=== PATIENT | male | born 1945 | race Caucasian/White ===

== ENCOUNTER 2018-03-03 08:07 | Inpatient (IN) | payer OTHER, MEDICAID ==
--- NOTE | 2018-03-03 09:01 | EDPHY ---
H & P Stated Complaint: Swelling in legs and hands Time Seen by Provider: 03/03/18 08:34 HPI/ROS: CHIEF COMPLAINT: Shortness of breath, maldonado skin HISTORY OF PRESENT ILLNESS: 72-year-old male presents with a 1 month history of shortness of breath. Onset of exertional shortness of breath 1 month ago, associated with a productive cough. He now feels short of breath with minimal exertion. When he climbs a flight of stairs, he needs to stop several times because of shortness of breath. He has also noticed that his skin has been maldonado at altitude over the last month. He lives at 9000 [place] elevation. He feels much better at this elevation. No chest pain or tightness. No prior history of cardiopulmonary disease. REVIEW OF SYSTEMS: complete 10 point ROS reviewed and is negative except for the noted elements in the HPI Source: Patient Exam Limitations: No limitations - Personal History Current Tetanus/Diphtheria Vaccine: Yes Tetanus Vaccine Date: 2012 - Medical/Surgical History Hx Asthma: No Hx Chronic Respiratory Disease: No Hx Diabetes: No Hx Cardiac Disease: Yes Hx Renal Disease: No Hx Cirrhosis: No Hx Alcoholism: Yes Hx HIV/AIDS: No Hx Splenectomy or Spleen Trauma: No Other PMH: pmh- GERD, depression, HTN, polio, ETOH, arthritis. psh- Tonsillectomy, Inguinal hernia rep - Social History Smoking Status: Current every day smoker Alcohol Use: Heavy Drug Use: None - Physical Exam Exam: General Appearance: Alert, pleasant Eyes: Pupils equal and round, no conjunctival pallor or injection ENT, Mouth: Mucous membranes moist Neck: Normal inspection Respiratory: Lungs are clear to auscultation, no wheezing, rhonchi or rales Cardiovascular: Regular rate and rhythm, no murmur Gastrointestinal: Abdomen is soft and nontender Neurological: A&O, nonfocal, normal gait Skin: Warm and dry Extremities: Slight swelling bilaterally, right lower extremity is smaller than left Psychiatric: Mood and affect normal Constitutional: Initial Vital Signs Temperature (C) 36.5 C 03/03/18 08:11 Heart Rate 90 03/03/18 08:11 Respiratory Rate 18 03/03/18 08:11 Blood Pressure 183/139 H 03/03/18 08:11 O2 Sat (%) 98 03/03/18 08:11 O2 Delivery Mode Room Air Allergies/Adverse Reactions: Penicillins Allergy (Verified 03/03/18 10:31) Tongue Swelling Home Medications: Medication Instructions Recorded NK [No Known Home Meds] 03/03/18 Medical Decision Making - Diagnostics EKG Interpretation: EKG interpreted by me reveals sinus rhythm, rate 95, PACs, prolonged QT interval. Interpretation: Abnormal EKG Imaging Results: Imaging Impressions Chest X-Ray 03/03/18 08:35 Impression: 1. No definite pneumonia. 2. Atherosclerotic aorta. 3. Moderate midthoracic compression fracture likely benign. Consider DEXA bone scan evaluation when the patient's medical condition permits. Imaging: I viewed and interpreted images myself ED Course/Re-evaluation: This patient presents with exertional shortness of breath. Stat EKG reveals no evidence of ischemia or dysrhythmia. Chest x-ray is unremarkable. Laboratory tests reveal elevated BNP, consistent with pulmonary edema. Lasix 20 mg IV given. Echocardiogram ordered. D-dimer is slightly over the upper limit of normal, doubt this is of clinical concern. Patient has no risk factors for pulmonary embolism and I do not feel that further testing is indicated. Given significant symptomatology at altitude, this patient will need to be admitted for further evaluation and treatment of pulmonary edema. The hospitalist service was consulted for admission. Differential Diagnosis: Differential diagnosis includes though it is not limited to pneumonia, pneumothorax, pulmonary embolism, aortic dissection, pericarditis, acute coronary syndrome. - Data Points Laboratory Results: Laboratory Results 03/03/18 08:50 03/03/18 08:50 03/03/18 03/03/18 03/03/18 08:51 08:50 08:50 WBC RBC Hgb Hct MCV MCH MCHC RDW Plt Count MPV Neut % (Auto) Lymph % (Auto) Rush % (Auto) Eos % (Auto) Baso % (Auto) Nucleat RBC Rel Count Absolute Neuts (auto) Absolute Lymphs (auto) Absolute Monos (auto) Absolute Eos (auto) Absolute Basos (auto) Absolute Nucleated RBC Immature Gran % Immature Gran # D-Dimer 0.51 ug/mLFEU H ug/mLFEU (0.00-0.50) Carboxyhemoglobin 2.5 % H % (0-1.5) Sodium Potassium Chloride Carbon Dioxide Anion Gap BUN Creatinine Estimated GFR Glucose Calcium POC Troponin I 0.02 ng/mL ng/mL (0.00-0.08) NT-Pro-B Natriuret Pep 03/03/18 03/03/18 08:50 08:50 WBC 8.43 10^3/uL 10^3/uL (3.80-9.50) RBC 4.59 10^6/uL 10^6/uL (4.40-6.38) Hgb 14.4 g/dL g/dL (13.7-17.5) Hct 41.4 % % (40.0-51.0) MCV 90.2 fL fL (81.5-99.8) MCH 31.4 pg pg (27.9-34.1) MCHC 34.8 g/dL g/dL (32.4-36.7) RDW 12.7 % % (11.5-15.2) Plt Count 252 10^3/uL 10^3/uL (150-400) MPV 8.4 fL L fL (8.7-11.7) Neut % (Auto) 72.9 % % (39.3-74.2) Lymph % (Auto) 14.5 % L % (15.0-45.0) Rush % (Auto) 8.2 % % (4.5-13.0) Eos % (Auto) 3.2 % % (0.6-7.6) Baso % (Auto) 0.8 % % (0.3-1.7) Nucleat RBC Rel Count 0.0 % % (0.0-0.2) Absolute Neuts (auto) 6.15 10^3/uL 10^3/uL (1.70-6.50) Absolute Lymphs (auto) 1.22 10^3/uL 10^3/uL (1.00-3.00) Absolute Monos (auto) 0.69 10^3/uL 10^3/uL (0.30-0.80) Absolute Eos (auto) 0.27 10^3/uL 10^3/uL (0.03-0.40) Absolute Basos (auto) 0.07 10^3/uL 10^3/uL (0.02-0.10) Absolute Nucleated RBC 0.00 10^3/uL 10^3/uL (0-0.01) Immature Gran % 0.4 % % (0.0-1.1) Immature Gran # 0.03 10^3/uL 10^3/uL (0.00-0.10) D-Dimer Carboxyhemoglobin Sodium 137 mEq/L mEq/L (135-145) Potassium 4.3 mEq/L mEq/L (3.3-5.0) Chloride 104 mEq/L mEq/L (97-110) Carbon Dioxide 23 mEq/l mEq/l (22-31) Anion Gap 10 mEq/L mEq/L (6-14) BUN 19 mg/dL mg/dL (7-23) Creatinine 1.1 mg/dL mg/dL (0.7-1.3) Estimated GFR > 60 Glucose 126 mg/dL H mg/dL (70-100) Calcium 9.1 mg/dL mg/dL (8.5-10.4) POC Troponin I NT-Pro-B Natriuret Pep 7400 pg/mL H pg/mL (0-125) Medications Given: Discontinued Medications Aspirin (Aspirin) 324 mg PO EDNOW ONE Stop: 03/03/18 09:44 Last Admin: 03/03/18 09:46 Dose: 324 mg Furosemide (Lasix Injection) 20 mg IVP EDNOW ONE Stop: 03/03/18 09:44 Last Admin: 03/03/18 09:47 Dose: 20 mg Point of Care Test Results: Chemistry 03/03/18 08:51 POC Troponin I 0.02 ng/mL ng/mL (0.00-0.08) Departure - Departure Disposition: [facility] Inpatient Acute Clinical Impression: Pulmonary edema Qualifiers: Chronicity: acute Qualified Code(s): J81.0 - Acute pulmonary edema Condition: Fair
[2018-03-03 09:16] LABS: PLATELET COUNT 252 10^3/uL (150-400)
[2018-03-03] MEDS ORDERED: ASPIRIN 81 MG CHEWABLE TAB PO ONE (09:43)
[2018-03-03] MEDS ORDERED: FUROSEMIDE 20 MG/2 ML VIAL IVP ONE (09:43)
--- NOTE | 2018-03-03 12:24 | ECHO ---
[email or web address] [address] [address] Main: [phone] Fax: [email or web address] Echocardiogram Name: GALILEO HOWE MR#: [id number] Study Date: 03/03/2018 Study Time: 10:00 AM Date of : 1945 Age: 72 year(s) Height: 172.7 cm (68 in.) Weight: 67.59 kg (149 lb.) BSA: 1.8 m2 Gender: Male Examination: Echo Indication: Shortness of breath Image Quality: Adequate Contrast: Requested by: Lois Cabrera BP: 190 mmHg/141 mmHg Heart Rate: Rhythm: Indication: Shortness of breath Procedure Staff [employer] Moss Gatherer: Rylee Turner [facility] Reading Physician: Edwin Dougherty MD Requesting Provider: Conclusions: Dilated left ventricle. Borderline concentric LV hypertrophy. Moderately reduced systolic LV function. EF is 41 %. Global hypokinesis. Moderate mitral valve regurgitation is present. Trivial aortic valve regurgitation. Mild tricuspid regurgitation is present. Right ventricular systolic pressure measures 57mmHg. No pericardial effusion. No prior study for comparison. Measurements: Chambers Valvular Assessment AV/MV Valvular Assessment TV/PV Normal Normal Normal Name Value Range Name Value Range Name Value Range Ao Valeria (2D): 3.5 cm (1.4 cm-2.6 AV Vmax: 1.18 m/s (1 m/s-1.7 TR Vmax: 3.60 mm/s ( - ) cm) m/s) TR PGmax: 52 mmHg ( - ) IVSd (2D): 1.1 cm (0.6 cm-1.1 AV maxP mmHg ( - ) syst. PAP: 57 mmHg ( - ) cm) AV meanP mmHg ( - ) PV Vmax: 0.58 m/s (0.6 m/s-0.9 LVDd (2D): 5.3 cm (4.2 cm-5.9 LVOT Vmax: 0.81 m/s (0.7 m/s-1.1 m/s) cm) m/s) PV PGmax: 1 mmHg ( - ) LVDs (2D): 4.4 cm (2.1 cm-4 JESS (Vmax): 2.2 cm2 ( - ) cm) JESS (VTI): 1.7 cm ( - ) LVPWd (2D): 1.1 cm (0.6 cm-1 MV E Vmax: 0.71 m/s ( - ) cm) MV A Vmax: 0.74 m/s ( - ) LVOTd 2.0 cm 2.0 cm mm MV E/A: 0.96 ( - ) LVEF (MOD4): 41 % (>=55 %) MV PHT: 0.052 s ( - ) RVDd(2D): 2.9 cm (1.9 cm-3.8 cmmm) MVA (PHT): 4.2 s ( - ) Patient: GALILEO HOWE Study Date: 03/03/2018 Page 1 of 2 10:00 AM Continued Measurements: Chambers Valvular Assessment AV/MV Valvular Assessment TV/PV Name Value Name Value Name Value LADs: 4.2 cm MV DecTime: 176 m/s CVP (est.): 5 mmHg LADs Lon.1 cm MV E/E' Lateral: 6.10 LA Area: 19.1 cm2 MR ERO: 0.210 cm2 LA Volume: 56 ml MR PISA radius: 7 mm LA Volume Index: 31.1 ml/m2 MR Reg. Volume: 38 ml RA Area: 14.4 cm2 Additional Vessels Name Value Ao Ascendin.6 cm Inferior Vena Cava: 2.1 cm Findings: Left Ventricle: Dilated left ventricle. Borderline concentric LV hypertrophy. Moderately reduced systolic LV function. EF is 41 %. Unable to assess diastolic dysfunction. Global hypokinesis. Right Ventricle: Normal size right ventricle. Normal RV function. Left Atrium: The left atrium is normal in size. Right Atrium: The right atrium is normal in size. Mitral Valve: The mitral valve is normal in appearance and function. Moderate mitral valve regurgitation is present. No mitral stenosis is present. Aortic Valve: The aortic valve is tri-leaflet. Trivial aortic valve regurgitation. No aortic valve stenosis is present. Tricuspid Valve: The tricuspid valve is normal in appearance and function. Mild tricuspid regurgitation is present. The pulmonary artery pressure is moderately increased. Right ventricular systolic pressure measures 57mmHg. Pulmonic Valve: Pulmonary valve not well visualized. Aorta: The aorta is normal. Normal size aortic root measuring 3.5 cm. Normal size ascending aorta measuring 3.6 cm. IVC: The IVC is normal sized. Pericardium: No pericardial effusion. No pleural effusion. (No Signature Object) Patient: GALILEO HOWE Study Date: 03/03/2018 Page 2 of 2 10:00 AM [id number]
--- NOTE | 2018-03-03 15:08 | CPEKG ---
Test Reason : OPEN Blood Pressure : / mmHG Vent. Rate : 095 BPM Atrial Rate : 089 BPM P-R Int : 118 ms QRS Dur : 094 ms QT Int : 426 ms P-R-T Axes : 045 027 069 degrees QTc Int : 536 ms Sinus rhythm Atrial premature complexes Prolonged QT interval Confirmed by Lois Cabrera ([id number]) on 03/03/2018 3:07:31 PM Referred By: Confirmed By:Lois Cabrera
[2018-03-03] MEDS ORDERED: ONDANSETRON 4 MG/2 ML VIAL IVP PRN (15:28)
[2018-03-03] MEDS ORDERED: ACETAMINOPHEN 325 MG TAB PO PRN (15:28)
[2018-03-03] MEDS ORDERED: ONDANSETRON DISINTEGRATING 4 MG TAB PO PRN (15:28)
--- NOTE | 2018-03-03 15:35 | PDGENHP ---
History and Physical - Chief Complaint SOB - History of Present Illness 72-year-old male presents with a 1 month history of shortness of breath, worse with exertion. Onset of exertional shortness of breath 1 month ago. He now feels short of breath with minimal exertion. When he climbs a flight of stairs, he needs to stop several times because of shortness of breath. He does have an occasional cough. He denies sputum. He is a daily tobacco smoker. He also occasionally uses Meth. He denies CP, palpitations. He does report bilateral leg swelling. CXR did not show edema. He did receive Lasix in the ER and reports he has urinated a significant amount and now feels better. He in RA. TTE shows a LVEF of 41%, Global Hypokinesis, and Mod MVR. RVSP is noted to be 57mmHg pmh- GERD, depression, HTN, polio, ETOH, arthritis. psh- Tonsillectomy, Inguinal hernia rep SocHx: tobacco use, Meth Use FmHx: non contributory History Information - Allergies/Home Medication List Allergies/Adverse Reactions: Penicillins Allergy (Verified 03/03/18 10:31) Tongue Swelling Home Medications: NK [No Known Home Meds] 03/03/18 [Last Taken Unknown] I have personally reviewed and updated: medical history, social history - Social History Smoking Status: Current every day smoker Alcohol Use: Heavy Drug Use: None Review of Systems Review of Systems: ROS: 10pt was reviewed & negative except for what was stated in HPI & below Physical Exam Physical Exam: Temp Pulse Resp BP Pulse Ox 36.3 C 99 14 170/117 H 99 03/03/18 13:22 03/03/18 13:22 03/03/18 13:22 03/03/18 13:22 03/03/18 13:22 Constitutional: no apparent distress Eyes: PERRL Ears, Nose, Mouth, Throat: moist mucous membranes, hearing normal Cardiovascular: regular rate and rhythym, No edema (no edema noted) Respiratory: no respiratory distress, no rales or rhonchi, clear to auscultation Gastrointestinal: normoactive bowel sounds, soft, non-tender abdomen Skin: warm Neurologic: AAOx3 Psychiatric: interacting appropriately, not anxious, not encephalopathic Lab Data & Imaging Review 03/03/18 08:50 03/03/18 08:50 WBC 8.43 10^3/uL (3.80-9.50) 03/03/18 08:50 RBC 4.59 10^6/uL (4.40-6.38) 03/03/18 08:50 Hgb 14.4 g/dL (13.7-17.5) 03/03/18 08:50 Hct 41.4 % (40.0-51.0) 03/03/18 08:50 MCV 90.2 fL (81.5-99.8) 03/03/18 08:50 MCH 31.4 pg (27.9-34.1) 03/03/18 08:50 MCHC 34.8 g/dL (32.4-36.7) 03/03/18 08:50 RDW 12.7 % (11.5-15.2) 03/03/18 08:50 Plt Count 252 10^3/uL (150-400) 03/03/18 08:50 MPV 8.4 fL (8.7-11.7) L 03/03/18 08:50 Neut % (Auto) 72.9 % (39.3-74.2) 03/03/18 08:50 Lymph % (Auto) 14.5 % (15.0-45.0) L 03/03/18 08:50 [place] % (Auto) 8.2 % (4.5-13.0) 03/03/18 08:50 Eos % (Auto) 3.2 % (0.6-7.6) 03/03/18 08:50 Baso % (Auto) 0.8 % (0.3-1.7) 03/03/18 08:50 Nucleat RBC Rel Count 0.0 % (0.0-0.2) 03/03/18 08:50 Absolute Neuts (auto) 6.15 10^3/uL (1.70-6.50) 03/03/18 08:50 Absolute Lymphs (auto) 1.22 10^3/uL (1.00-3.00) 03/03/18 08:50 Absolute Monos (auto) 0.69 10^3/uL (0.30-0.80) 03/03/18 08:50 Absolute Eos (auto) 0.27 10^3/uL (0.03-0.40) 03/03/18 08:50 Absolute Basos (auto) 0.07 10^3/uL (0.02-0.10) 03/03/18 08:50 Absolute Nucleated RBC 0.00 10^3/uL (0-0.01) 03/03/18 08:50 Immature Gran % 0.4 % (0.0-1.1) 03/03/18 08:50 Immature Gran # 0.03 10^3/uL (0.00-0.10) 03/03/18 08:50 D-Dimer 0.51 ug/mLFEU (0.00-0.50) H 03/03/18 08:50 Carboxyhemoglobin 2.5 % (0-1.5) H 03/03/18 08:50 Sodium 137 mEq/L (135-145) 03/03/18 08:50 Potassium 4.3 mEq/L (3.3-5.0) 03/03/18 08:50 Chloride 104 mEq/L (97-110) 03/03/18 08:50 Carbon Dioxide 23 mEq/l (22-31) 03/03/18 08:50 Anion Gap 10 mEq/L (6-14) 03/03/18 08:50 BUN 19 mg/dL (7-23) 03/03/18 08:50 Creatinine 1.1 mg/dL (0.7-1.3) 03/03/18 08:50 Estimated GFR > 60 03/03/18 08:50 Glucose 126 mg/dL (70-100) H 03/03/18 08:50 Calcium 9.1 mg/dL (8.5-10.4) 03/03/18 08:50 POC Troponin I 0.02 ng/mL (0.00-0.08) 03/03/18 08:51 NT-Pro-B Natriuret Pep 7400 pg/mL (0-125) H 03/03/18 08:50 Assessment & Plan Assessment: #Dyspnea on Exertion #Pedal Edema #CHF -LVEF 41, global Hypokinesis #Pulm HTN #Tobacco Abuse disorder #Meth use -Prolonged QT syndrome Plan: the pt looks very stable currently. While he reported pedal edema in the ER and SOB, he is much better since receiving the Lasix in the ER. He reports at least 1 liter voided. His Echocardiogram is concerning. EKG is unremarkable for acute ischemia. The pt will be monitored overnight. Likely needs ongoing diuretics, can reevaluate tomorrow. Although no chest pain, given the global hypokinesis and the improvement of the dyspnea at lower altitude, will do serial trops and obtain a stress test in a.m. Cards to evaluate.
[2018-03-03] MEDS ORDERED: CARVEDILOL 6.25 MG TAB PO ONE (16:09)
[2018-03-03] MEDS: NICOTINE 21 MG/24 HR PATCH TD SCH (16:50)
--- NOTE | 2018-03-03 17:26 | GCON ---
CARDIOLOGY CONSULTATION REASON FOR CONSULTATION: We were asked by Dr. Shahid to evaluate the patient for his systolic CHF. HISTORY OF PRESENT ILLNESS: The patient is a 72-year-old male who presented to the emergency department for worsening dyspnea over the past several months with associated lower extremity edema and "getting maldonado at higher altitudes." He denies any associated chest pains, presyncope, syncope, or palpitations. He does note some PND where he will gasp awake. He reports he has been previously diagnosed with COPD, but has not been compliant with inhalers. 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 He admits to daily tobacco abuse with less than 1 pack per day. He has stopped heavy drinking and at most will have 2-3 drinks per month. He is a current methamphetamine user and he reports he smokes methamphetamines in order to be able to stay awake to perform his work. PAST MEDICAL HISTORY: 1. Polio. 2. Untreated hypertension. 3. Depression. 4. GERD. 5. Current tobacco use. 6. Current methamphetamine use. 7. COPD. PAST SURGICAL HISTORY: Tonsillectomy and inguinal hernia repair. FAMILY HISTORY: Father had an PR at age 45 and at age 82. He has several brothers and sisters, and they have no cardiac issues. 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 He is a current smoker. He denies any significant alcohol intake. He is currently using methamphetamines. REVIEW OF SYSTEMS: As per HPI, other also pertinent negatives include no recent fever, chills, cough, hemoptysis, diarrhea, dysuria. He is noting peripheral edema mostly affecting his right leg that is affected by polio. A 10-point review of systems was obtained and is negative except for as dictated in HPI. PHYSICAL EXAMINATION: VITAL SIGNS: BP of 149/114, heart rate of 92, respirations 19, O2 saturation 97% on room air, temp of 97.4 degrees Fahrenheit. GENERAL: He is an elderly male in no apparent distress. HEENT: Head is normocephalic, atraumatic. Eyes are without scleral icterus. He has moist mucous membranes. NECK: He has JVD present to the mid neck. HEART: Regular rate and rhythm with a 2/6 systolic ejection murmur. LUNGS: Diminished with rhonchi auscultated. ABDOMEN: Soft. Aorta is nonpulsatile. Bowel sounds are present. : No Stewart present. SKIN: Warm and dry. EXTREMITIES: Right leg is visibly much smaller than the left. There is no evident edema. Pulses are diminished to trace bilaterally at the PT pulses. PSYCH: Normal mood and affect. LABORATORY DATA: BMP with sodium 137, potassium 4.3, chloride 104, CO2 23, BUN 19, creatinine 1.1, glucose of 126. NT-proBNP of 7400. Initial point of care troponin is 0.02, which is negative. Next troponin is currently pending. CBC with WBC 8.43, hemoglobin 14.4, hematocrit 41.4, platelet count 252. D- dimer is minimally elevated at 0.51. Carboxyhemoglobin is 2.5. DATABASE: Telemetry reviewed shows sinus rhythm with PJCs or PVCs. A 12-lead ECG, personally interpreted, reveals sinus rhythm with PJCs and LVH by voltage with diffuse ST-T wave abnormalities. Echo shows an EF of 40%, borderline concentric LVH, moderate MR, mild TR, and RVSP of 57. Chest x-ray, personally reviewed, shows atherosclerosis in the aorta with no definite fluid overload. IMPRESSION AND PLAN: The patient is a 72-year-old male who presents with acute- on-chronic shortness of breath. 1. Systolic congestive heart failure. This is likely the etiology of his shortness of breath. He has evidence of congestive heart failure with elevated neck veins, peripheral edema, elevated NT-proBNP and reduced left ventricular ejection fraction. He will be given another dose of intravenous Lasix at a low dose scheduled for tomorrow as he is not profoundly volume overloaded at this point. We will initiate appropriate medical therapy starting with beta abraham therapy. He will be started on carvedilol. Goal blood pressure reviewed with patient. If blood pressure permits, an YESSY inhibitor will be added prior to discharge. He will be ruled out for ischemia with further testing. 2. Pulmonary hypertension. He has moderately elevated estimated right ventricular systolic pressure. We will start him on diuresis and potentially add calcium channel abraham prior to discharge. He will also need formal pulmonology evaluation, which can be undertaken as an outpatient. 3. Aortic atherosclerosis. Aspirin has been started. Lipids will be checked with morning labs. 4. Tobacco and methamphetamine use. He is strongly advised to diminish or stop the usage of these to decrease his cardiovascular risks. More recommendations will follow further testing. /[id number]/MODL CATHIE
[2018-03-03] MEDS: CARVEDILOL 6.25 MG TAB PO SCH (17:31)
[2018-03-04 04:09] LABS: PLATELET COUNT 273 10^3/uL (150-400)
[2018-03-04] MEDS: NICOTINE 21 MG/24 HR PATCH TD SCH (06:25)
[2018-03-04] MEDS ORDERED: PNEUMOC 13-VAL CONJ-DIP CRM/PF 0.5 ML SYR (PREVNAR 13) IM ONE ×2 (08:11→09:00)
[2018-03-04] MEDS: ENOXAPARIN 40 MG/0.4 ML SYR SC SCH (08:15)
[2018-03-04] MEDS: ASPIRIN 81 MG CHEWABLE TAB PO SCH (08:15)
[2018-03-04] MEDS ORDERED: CARVEDILOL 6.25 MG TAB PO SCH (08:43)
[2018-03-04] MEDS: LOSARTAN POTASSIUM 25 MG TAB PO SCH (09:11)
[2018-03-04] MEDS: CARVEDILOL 6.25 MG TAB PO SCH ×3 (09:11→18:23)
[2018-03-04] MEDS ORDERED: REGADENOSON 0.4 MG/5 ML SYR IVP ONE (10:57)
--- NOTE | 2018-03-04 11:17 | PDCARST ---
CAR Stress Test Results Type of Stress Test: Lexiscan MPI Indication: abnormal echo with LVEF 40%, new MILLS Description of Procedure: After informed consent was obtained, pt was established to ECG, blood pressure, HR and oximetry monitoring. STRESS EKG AND HEMODYNAMIC DATA. Resting heart rate: 77 BPM. Resting ECG: SR. Resting blood pressure: 150/96 mmHg. O2 saturation at rest: 98%. Peak heart rate: 81 BPM. Peak blood pressure: 160/84 mmHg. Arrhythmias: none. Symptoms: The patient experienced no typical symptoms of angina during stress or recovery. Stress/Infusion ECG: No change in rhythm with no significant ST/T wave changes. Stress/infusion O2 saturation: 98% Impression: Uneventful Lexiscan infusion. Conclusion: Await nuclear images.
[2018-03-04] MEDS: FUROSEMIDE 20 MG/2 ML VIAL IVP SCH (12:05)
--- NOTE | 2018-03-04 12:38 | ASMTCMCOM ---
CM Note CM Note Notes: Pts case discussed in tx rounds. Pt is a 72 y/o man admitted for CHF. Pt is getting a stress test today. Pt will most likely d/c independent once stress test comes back negative. PT has been ordered. CM available for changes. Plan: Independent Date Signed: 03/04/2018 12:37 PM Electronically Signed By:LEIGHANN Owens
--- NOTE | 2018-03-04 12:40 | CPEKG ---
Test Reason : OPEN Blood Pressure : / mmHG Vent. Rate : 074 BPM Atrial Rate : 074 BPM P-R Int : 171 ms QRS Dur : 083 ms QT Int : 450 ms P-R-T Axes : 065 021 067 degrees QTc Int : 500 ms Sinus rhythm Consider left ventricular hypertrophy Borderline prolonged QT interval Occasional PAC No significant change from March 03, 2018 Confirmed by Ed Jenkins ([id number]) on 03/04/2018 12:40:01 PM Referred By: Confirmed By:Ed Jenkins
[2018-03-04] MEDS ORDERED: NITROGLYCERIN 0.4 MG BTL SL PRN (13:50)
[2018-03-04] MEDS ORDERED: TEMAZEPAM 15 MG CAP PO PRN (13:50)
--- NOTE | 2018-03-04 15:27 | HOSPPROG ---
Hospitalist Progress Note Assessment/Plan: #Dyspnea on Exertion #Pedal Edema #CHF -LVEF 41, global Hypokinesis #Concern for Angina and CAD #Pulm HTN #Tobacco Abuse disorder #Meth use -Prolonged QT syndrome Plan: Resp saeed the pt feels better Nuclear testing shows ischemia/infarct in [place] and Lateral self Cards following, may benefit from Cath, will await reccs cont scheduled Lasix, BB, Cozaar, Aspirin Likely will change to inpatient pending Cards reccs Subjective: no cp or sob. will have stress testing today. Objective: Vital Signs Temp Pulse Resp BP Pulse Ox 36.3 C 93 12 143/97 H 95 03/04/18 11:56 03/04/18 11:56 03/04/18 11:56 03/04/18 11:56 03/04/18 11:56 Laboratory Results 03/04/18 03:11 03/04/18 03:11 03/03/18 03/04/18 03/05/18 05:59 05:59 05:59 Intake Total 1780 Output Total 1103 Balance 677 - Physical Exam Constitutional: no apparent distress Eyes: PERRL Ears, Nose, Mouth, Throat: moist mucous membranes, hearing normal Cardiovascular: regular rate and rhythym, no murmur, rub, or gallop Respiratory: no respiratory distress, no rales or rhonchi, clear to auscultation Gastrointestinal: normoactive bowel sounds, soft, non-tender abdomen Skin: warm Neurologic: AAOx3 Psychiatric: interacting appropriately, not anxious, not encephalopathic Lymph, Heme, Immunologic: No petechiae ICD10 Worksheet Patient Problems: Problems Problem Status Onset Pulmonary edema Acute
--- NOTE | 2018-03-04 15:35 | PDCARPN ---
Cardiology Progress Note Chief Complaint: MILLS Assessment/Plan: Assessment: 72-y/o M PMH ongoing tobacco/meth abuse, htn (previously on antihypertensives but stopped a few years ago), admitted with MILLS and peripheral edema. Found to have abnormal echo with EF 40, global HK, RVSP 75, and mod mod MR. NT-pBNP elevated at 7400. Lexiscan MPI today shows infarct involving inf, lateral, and apical self with mild PI #. SCHF new diagnosis with reduced EF, dyspnea, and perceived peripheral edema patient appears mostly euvolemic #. abnormal Nuc: in setting of SCHF, this warrants further workup ordered LHC for AM #. htn: we reviewed the importance of medical management BP slowly improving started Carvedilol and Losartan #. PHTN: will need outpatient pulmonary evaluation #. mod MR: will need serial echoes to follow this Plan: - LHC in AM (R/B/A reviewed) 03/04/18 15:39 Subjective: Some dyspnea. Difficult night's sleep last night. Reviewed/Discussed With: hospitalist (Dr. Shahid) Objective: Vital Signs (8 Hrs) Temp Pulse Resp BP Pulse Ox 03/04/18 11:56 97.4 F 93 12 143/97 H 95 Intake/Output (24 Hrs) 03/03/18 03/04/18 03/05/18 05:59 05:59 05:59 Intake Total 1780 Output Total 1103 Balance 677 Intake: Oral (ml) 1780 Output: Urine (ml) 1103 Toilet 3 Other: Weight 64.6 kg Intake Quantity Yes Sufficient Number of Voids 2 Toilet 1 Result Diagrams: 03/04/18 03:11 03/04/18 03:11 Cardiac Labs: Cardiac Lab Results (72 Hrs) 03/04/18 03/03/18 03:11 16:00 Troponin I 0.026 0.030 Telemetry: reviewed/ SR - Physical Exam Constitutional: no apparent distress Eyes: anicteric sclera Ears, Nose, Mouth, Throat: moist mucous membranes Cardiovascular: regular rate and rhythm, systolic murmur Respiratory: no crackles, no wheezes, reduced air movement Genitourinary: No preciado in urethra Skin: other (R leg smaller than L/ ankle edema) Neurologic: AAOx3 Psychiatric: cooperative, interactive ICD10 Worksheet Patient Problems: Problems Problem Status Onset Pulmonary edema Acute
--- NOTE | 2018-03-04 16:31 | PDMN ---
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
[2018-03-05 04:10] LABS: PLATELET COUNT 257 10^3/uL (150-400)
[2018-03-05 04:19] LABS: INR 1.12 (0.83-1.16); PROTIME(PATIENT) 14.6 SEC (12.0-15.0)
[2018-03-05] MEDS ORDERED: diphenhydrAMINE 25 MG CAP PO ONE (06:00)
[2018-03-05] MEDS ORDERED: DIAZEPAM 5 MG TAB PO ONE (06:00)
[2018-03-05] MEDS ORDERED: FAMOTIDINE 20 MG TAB PO ONE (06:00)
[2018-03-05] MEDS ORDERED: ASPIRIN EC 325 MG TAB PO ONE (06:00)
--- NOTE | 2018-03-05 07:27 | PDCARPN ---
Cardiology Progress Note Chief Complaint: SOB Assessment/Plan: Assessment: SOB abnormal echo/stress test Plan: 03/05/18 07:25 plan for [facility] this AM NPO I have explained risks/possible complications of the procedure including bleeding, stroke, and possible and patient would like to proceed Subjective: less MILLS Reviewed/Discussed With: multidisciplinary team Time Spent with Patient: greater than 25 minutes Time Spent with Patient: Greater than 25 minutes spent on this patients care, greater than 50% of time spent counseling, educating, and coordinating care regarding the above mentioned plan. Objective: Vital Signs (8 Hrs) Temp Pulse Resp BP Pulse Ox 03/05/18 03:38 36.4 C 68 16 152/97 H 98 Intake/Output (24 Hrs) 03/04/18 03/05/18 03/06/18 05:59 05:59 05:59 Intake Total 2450 Balance 2450 Intake: Oral (ml) 2450 IV Intake (ml) 0 Other: Weight 65 kg Intake Quantity Yes Sufficient Number of Stools Toilet 1 Result Diagrams: 03/05/18 03:08 03/05/18 03:08 - Physical Exam Constitutional: healthy appearing Eyes: PERRL Ears, Nose, Mouth, Throat: moist mucous membranes Cardiovascular: regular rate and rhythm Peripheral Pulses: 1+: femoral (R), femoral (L) Respiratory: clear to auscultate bilat Gastrointestinal: normoactive bowel sounds Genitourinary: no suprapubic tenderness Skin: no rashes Musculoskeletal: no muscular tenderness Neurologic: AAOx3 Psychiatric: cooperative ICD10 Worksheet Patient Problems: Problems Problem Status Onset Pulmonary edema Acute
[2018-03-05] MEDS ORDERED: LIDOCAINE 1% 300 MG/30 ML SDV ONE (07:40)
[2018-03-05] MEDS ORDERED: IOPAMIDOL (ISOVUE-370) 150 ML BTL IV ONE (07:41)
[2018-03-05] MEDS ORDERED: fentaNYL 100 MCG/2 ML INJ ONE (07:44)
[2018-03-05] MEDS ORDERED: MIDAZOLAM 2 MG/2 ML VIAL ONE (07:45)
--- NOTE | 2018-03-05 07:45 | PDHPUP ---
History & Physical Update H&P update statement: This history and physical update is based on an assessment of the patient which was completed after admission or registration (within 24 hours), but prior to the surgery/procedure. H&P update: H&P reviewed & patient examined, no change in patient's condition since H&P completed
--- NOTE | 2018-03-05 07:46 | PDPROPOC ---
Sedation Plan of Care Sedation Plan of Care: mental status noted, patient educated of risks, benefits , alternatives, patient can tolerate sedation ASA Classification: ASA 2 Planned drugs: fentanyl, midazolam Mallampati Score: Class 2 Mallampati Reference Image: Patient passed 3-3-2 rule?: Yes
[2018-03-05] MEDS ORDERED: BIVALIRUDIN 250 MG/5 ML VIAL IV ONE (08:10)
[2018-03-05] MEDS ORDERED: hydrALAZINE 20 MG/ML VIAL ONE (08:10)
[2018-03-05] MEDS ORDERED: CLOPIDOGREL BISULFATE 75 MG TAB ONE (08:11)
[2018-03-05] MEDS ORDERED: NITROGLYCERIN 1,500 MCG/15 ML VIAL MISC ONE (08:27)
[2018-03-05] MEDS: LOSARTAN POTASSIUM 25 MG TAB PO SCH (10:25)
[2018-03-05] MEDS: CARVEDILOL 6.25 MG TAB PO SCH ×2 (10:25→18:15)
[2018-03-05] MEDS: ASPIRIN 81 MG CHEWABLE TAB PO SCH (10:25)
[2018-03-05] MEDS: FUROSEMIDE 20 MG/2 ML VIAL IVP SCH (10:25)
[2018-03-05] MEDS: NICOTINE 21 MG/24 HR PATCH TD SCH (10:26)
[2018-03-05] MEDS: ENOXAPARIN 40 MG/0.4 ML SYR SC SCH (10:26)
[2018-03-05] MEDS ORDERED: FAMOTIDINE 20 MG/NACL 50 ML IV ONE (12:30)
--- NOTE | 2018-03-05 17:05 | HOSPPROG ---
Hospitalist Progress Note Assessment/Plan: * Unstable angina with positive stress test -s/p stent - await cath report -ASA/plavix/statin * Acute on chronic systolic CHF - EF 41% -IV lasix * Metabolic/toxic encephalopathy -confused, agitated, hallucinating today -consider withdrawal, denies Etoh, possible meth * Post polio syndrome -c/o RLE edema - check US Subjective: confused today, agitated and hallucinating, waxes and wanes Objective: Vital Signs Temp Pulse Resp BP Pulse Ox 36.3 C 104 H 18 107/82 H 96 03/05/18 10:00 03/05/18 15:00 03/05/18 15:00 03/05/18 15:00 03/05/18 15:00 Laboratory Results 03/05/18 03:08 03/05/18 03:08 03/04/18 03/05/18 03/06/18 05:59 05:59 05:59 Intake Total 2450 200 Output Total 750 Balance 2450 -550 PT 14.6 SEC (12.0-15.0) 03/05/18 03:08 INR 1.12 (0.83-1.16) 03/05/18 03:08 - Physical Exam Constitutional: no apparent distress, appears nourished, not in pain Cardiovascular: regular rate and rhythym, no murmur, rub, or gallop Respiratory: no respiratory distress, no rales or rhonchi, clear to auscultation Gastrointestinal: normoactive bowel sounds, soft, non-tender abdomen, no palpable masses Musculoskeletal: full muscle strength, no muscle tenderness, normal joint ROM Neurologic: No AAOx3 Psychiatric: encephalopathic, agitated, poor insight, poor judgement, poor memory ICD10 Worksheet Patient Problems: Problems Problem Status Onset Pulmonary edema Acute
[2018-03-05] MEDS ORDERED: PROMETHAZINE HCL 25 MG/ML INJ IVP PRN (19:05)
--- NOTE | 2018-03-05 19:31 | CPIP ---
DATE OF PROCEDURE: 03/05/2018 INDICATIONS FOR PROCEDURE: Shortness of breath, chest pain. Positive stress test. PROCEDURES: 1. Nonselective right groin sheathogram. 2. Bilateral coronary angiography, left heart catheterization as well as left ventricular angiogram. 3. Percutaneous intervention of large mid diagonal artery with Synergy 2.5 x 16 mm drug eluting sten t. HISTORY: Briefly this is a 72-year-old male with history of tobacco/meth use and medical noncomplian ce. The patient was admitted for shortness of breath, was found to have a reduced ejection fraction as well as an abnormal stress test with anterolateral infarct/justino-infarct ischemia. Given these fin dings, the patient was consented for left heart catheterization. DESCRIPTION OF PROCEDURE: After informed consent, the patient was brought to [facility] where the right groin was prepped and draped in a sterile fashion. Using local lidocaine, a short 6-Belarusian sheath to the right femoral artery verified angiographically. Of note, the right common fem oral angiography showed heavily calcified with mildly diseased [employer]. A JL4 catheter was advanced to t he left coronary artery. Images of the left coronary artery revealed normal left main. There was a takeoff of a marginal 1 artery proximally which had mild ostial disease. The circumflex artery prope r had mild 20% to 30% disease in its midportion. Distally, the vessel terminated into larger margina l arteries which were healthy and free of disease. The LAD was a long vessel which wrapped around th e apex. The LAD itself proper had no significant disease. There was a medium to large diagonal mario ry coming off the midbody of the LAD, which had a focal, tubular 70% hazy stenosis. After these imag es were obtained, the JL4 catheter was removed. The JR4 catheter was advanced to the right coronary artery. Images of the right coronary artery revealed [place] right coronary artery with mil d 20% plaque disease proximally. Mid body had an additional 20% distally. The RPD and RPLS appeared healthy, free of disease. After these images were obtained, the JR4 catheter was removed over a 0.0 35 wire. Pigtail catheter was advanced to left ventricle. LVEDP is 22 mmHg. Left ventriculogram in the JIM projection showed an EF of approximately 40% with global hypokinesis. There was no pull-keila k gradient between the LV and aorta. Pigtail catheter was removed over a 0.035 wire. INTERVENTION REPORT: At this time, the patient was administered 600 mg of Plavix p.o., started on an Angiomax bolus and drip. An EBU 3.5 guide catheter was advanced to left coronary artery. A Choice PT wire was placed down into the large mid diagonal artery. Predilatation commenced with a 225 x 12 mm balloon at 14 atmospheres. After this was performed, we then proceeded with stenting this vessel with a 2.5 x 16 mm Synergy drug-eluting stent. This was deployed successfully at [address] deployment, the patient was administered 200 mcg of nitroglycerin IC. Images were taken, which s howed excellent patency of the stented regions with no evidence of dissection or perforation. The wi re was pulled back. The guide catheter was removed. The right groin was sutured in place. Patient tolerated the procedure well with no complications. IMPRESSION: 1. Successful percutaneous coronary intervention of high-grade large mid diagonal artery disease wit h Synergy 2.5 x 16 mm drug stent. 2. Mild, noncritical disease in the left circumflex artery and right coronary artery. 3. Reduced ejection fraction of 40% with global hypokinesis. PLAN: The patient will have his sheath discontinued in 2 hours' time. Remain on baby aspirin and Pl avix, as well as aggressive medical therapy. /[id number]/MODL
[2018-03-06 04:47] LABS: PLATELET COUNT 245 10^3/uL (150-400)
--- NOTE | 2018-03-06 08:48 | SOAPPROG ---
SOAP Progress Note Assessment/Plan: Assessment: 72 y/o man with active tobaccoism and meth use with CAD s/p ZOEY to large diagonal yesterday and new systolic CHF with LVEF 41%. He is weak and has near syncope on ambulation at 50ft today. He is bradycardic and might be a little intravascularly dry. PLAN: 1)stop Lasix 2)decrease Coreg to 6.25mg PO BID. 3)rest of meds without changes. 4)reassess in afternoon and if feels well with ambulation, okay to discharge home from cardiac standpoint this afternoon otherwise tomorrow. 5)f/u [facility]- Dr. Marco Oliveira in ten days. Our office will call pt wednesday with time and date. 03/06/18 08:45 Subjective: Denies CP, palpitations, PND or cough. He is weak and lightheaded with ambulation. No bleeding or pain at cath site. Objective: Vital Signs Temp Pulse Resp BP Pulse Ox 36.6 C 81 18 105/71 96 03/06/18 08:00 03/06/18 08:00 03/06/18 08:00 03/06/18 08:00 03/06/18 08:00 Laboratory Results 03/06/18 03:20 03/06/18 03:20 03/05/18 03/06/18 03/07/18 05:59 05:59 05:59 Intake Total 2450 200 Output Total 750 Balance 2450 -550 PT 14.6 SEC (12.0-15.0) 03/05/18 03:08 INR 1.12 (0.83-1.16) 03/05/18 03:08 Physical Exam - Physical Exam General Appearance: alert EENT: normal ENT inspection Neck: non-tender Respiratory: lungs clear Cardiac/Chest: regular rate, rhythm, systolic murmur (1/6 CHRISTIANO), No gallop, No JVD Peripheral Pulses: 2+: carotid (R), carotid (L), femoral (R), femoral (L), dorsalis-pedis (R), dorsalis-pedis (L) Abdomen: non-tender, No rebound, No ascites Skin: warm/dry Extremities: No pedal edema Neuro/Psych: alert ICD10 Worksheet Patient Problems: Problems Problem Status Onset Pulmonary edema Acute
[2018-03-06] MEDS ORDERED: FUROSEMIDE 20 MG TAB PO SCH (09:00)
--- NOTE | 2018-03-06 09:07 | CPEKG ---
Test Reason : OPEN Blood Pressure : / mmHG Vent. Rate : 087 BPM Atrial Rate : 089 BPM P-R Int : 139 ms QRS Dur : 085 ms QT Int : 356 ms P-R-T Axes : 052 042 029 degrees QTc Int : 429 ms Sinus rhythm No significant change from March 04, 2018 except no PACs Confirmed by Ed Jenkins ([id number]) on 03/06/2018 9:07:06 AM Referred By: Confirmed By:Ed Jenkins
[2018-03-06] MEDS: CARVEDILOL 6.25 MG TAB PO SCH ×3 (09:33→17:45)
[2018-03-06] MEDS: NICOTINE 21 MG/24 HR PATCH TD SCH (09:45)
[2018-03-06] MEDS: ENOXAPARIN 40 MG/0.4 ML SYR SC SCH (09:45)
[2018-03-06] MEDS: ATORVASTATIN CALCIUM 40 MG TAB PO SCH (09:46)
[2018-03-06] MEDS: LOSARTAN POTASSIUM 25 MG TAB PO SCH (09:46)
[2018-03-06] MEDS: ASPIRIN 81 MG CHEWABLE TAB PO SCH (09:46)
[2018-03-06] MEDS: CLOPIDOGREL BISULFATE 75 MG TAB PO SCH (09:46)
[2018-03-06] MEDS: FLUTICASONE/SALMETER 250/50MCG DISKUS IH SCH ×2 (11:08→20:54)
--- NOTE | 2018-03-06 14:56 | HOSPPROG ---
Hospitalist Progress Note Assessment/Plan: * Unstable angina s/p stent diag -ASA/plavix/statin * Acute on chronic systolic CHF - EF 41% -pamela ward lasix * Metabolic/toxic encephalopathy -improved -remains weak - will need SNF * Post polio syndrome -RLE US negative for DVT * Tobacco dependence -patch * Meth abuse Subjective: No complaints. Objective: Vital Signs Temp Pulse Resp BP Pulse Ox 36.7 C 79 19 98/64 L 98 03/06/18 11:37 03/06/18 11:37 03/06/18 11:37 03/06/18 11:37 03/06/18 11:37 Laboratory Results 03/06/18 03:20 03/06/18 03:20 03/05/18 03/06/18 03/07/18 05:59 05:59 05:59 Intake Total 2450 200 Output Total 750 Balance 2450 -550 PT 14.6 SEC (12.0-15.0) 03/05/18 03:08 INR 1.12 (0.83-1.16) 03/05/18 03:08 US leg - not DVT - Physical Exam Constitutional: no apparent distress, appears nourished, not in pain Cardiovascular: regular rate and rhythym, no murmur, rub, or gallop Respiratory: no respiratory distress, no rales or rhonchi, clear to auscultation Gastrointestinal: normoactive bowel sounds, soft, non-tender abdomen, no palpable masses Skin: no rashes or abrasions, no fluctuance, no induration Neurologic: AAOx3, sensation intact bilaterally Psychiatric: interacting appropriately, not anxious, not encephalopathic, thought process linear ICD10 Worksheet Patient Problems: Problems Problem Status Onset Pulmonary edema Acute
--- NOTE | 2018-03-06 19:31 | ASMTCMCOM ---
CM Note CM Note Notes: CM Note from Wednesday03/05/18 - previously documented under notes in [employer] d/t [employer] downtime: Reviewed chart regarding discharge plan of care, pt's progress. Per MD notes, pt had an abnormal echo/stress test and is scheduled for a LHC today. Per PT notes, pt is cleared for home with no needs or follow up. Anticipate pt will likely discharge home independently when medically stable. CM will continue to follow. Discharge Plan: Home independently Date Signed: 03/06/2018 07:30 PM Electronically Signed By:Jackeline Tsai RN
--- NOTE | 2018-03-06 19:37 | ASMTCMCOM ---
CM Note CM Note Notes: Reviewed chart, spoke with Dr. Abbott and LURDES Swan regarding discharge plan of care, pt's progress. Per unit rounds, pt would likely benefit from a short stay in rehab secondary to weakness, fatigue and shortness of breath. Met with pt to discuss potential [place]. [place] fifth wheel [place] The pt states he does not think he can return to 9,000 [place] and "needs some time to recover." Pt denies preferences towards a particular SNF. Various options discussed. Pt interested in sending referrals to [facility], [facility], [facility] and [facility]. Pt interested in learning more about placement in a LTC facility. Discussed potential costs and options. Referrals sent via [employer]; awaiting responses. Pt states he is connected with [facility] Pt would like to call [facility] in the morning to check on Emergency Housing options as well. CM to follow up with pt on Wednesday03/07/18 to further discuss options. Discharge Plan: To be determined Date Signed: 03/06/2018 07:36 PM Electronically Signed By:Jackeline Tsai RN
[2018-03-07] MEDS: NICOTINE 21 MG/24 HR PATCH TD SCH (07:53)
[2018-03-07] MEDS: CARVEDILOL 6.25 MG TAB PO SCH (07:54)
[2018-03-07] MEDS: ENOXAPARIN 40 MG/0.4 ML SYR SC SCH (07:54)
[2018-03-07] MEDS: CLOPIDOGREL BISULFATE 75 MG TAB PO SCH (07:54)
[2018-03-07] MEDS: ASPIRIN 81 MG CHEWABLE TAB PO SCH (07:54)
[2018-03-07] MEDS: LOSARTAN POTASSIUM 25 MG TAB PO SCH (07:54)
[2018-03-07] MEDS: ATORVASTATIN CALCIUM 40 MG TAB PO SCH (07:54)
[2018-03-07] MEDS: FLUTICASONE/SALMETER 250/50MCG DISKUS IH SCH (09:58)
--- NOTE | 2018-03-07 10:29 | HOSPPROG ---
Hospitalist Progress Note Assessment/Plan: * Unstable angina s/p stent diag -ASA/plavix/statin * Acute on chronic systolic CHF - EF 41% -pamela ward lasix * Metabolic/toxic encephalopathy -improved -remains weak - will need SNF * Post polio syndrome -RLE US negative for DVT * Tobacco dependence -patch * Meth use - further history reveals that the patient's last use was weeks ago , and he only uses 1-2 x per week. He is very adamant that he does not use for recreational purposes. He works very long hours and sometimes smokes meth to get him through extra long work days. He has not undergone withdrawal here , has not had any agitation or behavioral issues and has been very compliant and pleasant. He has been counselled regarding his tobacco and meth use in light of his new cardiac disease and clearly states "I want to live and I'm going to change" Subjective: Feels well Objective: Vital Signs Temp Pulse Resp BP Pulse Ox 36.3 C 72 21 H 154/126 H 92 03/07/18 08:00 03/07/18 08:00 03/07/18 08:00 03/07/18 08:00 03/07/18 08:00 Laboratory Results 03/06/18 03:20 03/06/18 03:20 03/06/18 03/07/18 03/08/18 05:59 05:59 05:59 Intake Total 200 375 Output Total 750 Balance -550 375 PT 14.6 SEC (12.0-15.0) 03/05/18 03:08 INR 1.12 (0.83-1.16) 03/05/18 03:08 - Physical Exam Constitutional: no apparent distress, appears nourished, not in pain Cardiovascular: regular rate and rhythym, no murmur, rub, or gallop Respiratory: no respiratory distress, no rales or rhonchi, clear to auscultation Gastrointestinal: normoactive bowel sounds, soft, non-tender abdomen, no palpable masses Skin: no rashes or abrasions, no fluctuance, no induration Neurologic: AAOx3, sensation intact bilaterally Psychiatric: interacting appropriately, not anxious, not encephalopathic, thought process linear ICD10 Worksheet Patient Problems: Problems Problem Status Onset Pulmonary edema Acute
--- NOTE | 2018-03-07 10:47 | PDCARPN ---
Cardiology Progress Note Chief Complaint: N/A Assessment/Plan: Assessment: Victor M is a 72 y/o M admitted with SOB and abnormal stress test which prompted a angiogram. He was found to have obstructive disease within a diag which was stented with good results. He denies any CP or SOB. He denies any discomfort of his groin site. His EF is depressed at 41% and he was started on BB and YESSY- I therapy. He was bradycardic yesterday and his Coreg was reduced. He admits to tobacco and meth use. Plan: 1. CAD- s/p stenting to the diag. He is aware that he is to remain on Aspirin and Plavix for 1 year. 2. 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 He is on Coreg and Losartan. 3. HLP- Lipitor started. D/c to SNF today. He is scheduled to follow up with Dr. Aguirre in 10 days. 03/07/18 10:49 Subjective: He denies any further CP or SOB. He denies any left groin pain. Reviewed/Discussed With: hospitalist Objective: Vital Signs (8 Hrs) Temp Pulse Resp BP Pulse Ox 03/07/18 08:00 36.3 C 72 21 H 154/126 H 92 03/07/18 04:00 36.5 C 71 18 125/81 H 95 Intake/Output (24 Hrs) 03/06/18 03/07/18 03/08/18 05:59 05:59 05:59 Intake Total 200 375 Output Total 750 Balance -550 375 Intake: Oral (ml) 100 375 IV Intake (ml) 100 Output: Urine (ml) 750 Urinal 750 Other: Weight 62.5 kg 63.5 kg Intake Quantity Yes Yes Sufficient Number of Voids Toilet 1 Urinal 2 Result Diagrams: 03/06/18 03:20 03/06/18 03:20 Telemetry: NSR with rare PAC's and PVC's. - Physical Exam Constitutional: WDWN Cardiovascular: regular rate and rhythm Respiratory: clear to auscultate bilat Skin: no edema Neurologic: AAOx3 ICD10 Worksheet Patient Problems: Problems Problem Status Onset Pulmonary edema Acute
--- NOTE | 2018-03-07 13:32 | PDIAF ---
- Diagnosis Diagnosis: CHF, CAD s/p stent Code Status: Full Code - Medication Management Discharge Medications: electronically signed and located in the Home Medication List. - Orders Services needed: Physical Therapy, Occupational Therapy Diet Recommendation: no restrictions on diet - Follow Up Care Current Providers and Referrals: Trey Aguirre MD [Medical Doctor] - 03/16/18 10:15 am (Please arrive 15 minutes prior to your scheduled appointment time. ) NONE *PRIMARY CARE P,. [Unknown] - As per Instructions
--- NOTE | 2018-03-07 13:46 | ASMTLACE ---
SHILOE Length of stay for Answers: 3 days current admission Acuity / Level of Answers: Yes Care: Did the patient have an inpatient admission? Comorbidities - select Answers: Congestive heart failure all that apply Other Notes: HTN; GERD # of Emergency department Answers: 1-2 visits in the last 6 months Social determinants Answers: History of substance abuse (ETOH, street drugs, prescription drugs, etc.) Lack of community resources and/or lack of social support (no pcp, lives alone, transportation, carmelo d) Score: 17 Date Signed: 03/07/2018 01:46 PM Electronically Signed By:LEIGHANN Hernández
--- NOTE | 2018-03-07 15:34 | ASMTDCNOTE ---
Case Management Discharge Discharge Order Complete? Answers: Yes Patient to Obtain Answers: Independently Medications Transportation Arranged Answers: Other Notes: Arranged by Ana Laura Flynn, Wheelchair, No O 2 Faxed Final Orders Answers: Yes Notes: [facility] Agency/Facility Transfer Answers: Yes Notes: [facility] Report Printed & Faxed to Receiving Agency Discharge Comments Notes: CM discussed discharge plan with pt. Agreeable to be discharged to [facility]. [facility] has scheduled transportation for 1730. Discussed with RN plan and RN will call report. Date Signed: 03/07/2018 03:33 PM Electronically Signed By:Christina Mock RN
--- NOTE | 2018-03-07 15:34 | ASDISCHSUM ---
Discharge Information Plan Status:SNF Medically Cleared to Leave:03/06/2018 Discharge Date:03/06/2018 CM D/C Disposition:Group Home Facility ADT D/C Disposition:Group Home Facility Projected Discharge Date:03/08/2018 11:00 AM Transportation at D/C:Wheelchair Van Discharge Delay Reason: Follow-Up Date:03/08/2018 11:00 AM Discharge Slot: Final Diagnosis: Placement Information Referral Type:*Half-Way/SNF Referral ID:[id number] Provider Name:[facility] Address 1:[address] Address 2: City:[place] Selection Factors: State:[place] Referral Type:Assisted Living Residence Referral ID:[id number] Provider Name: Address 1: Phone Number: Address 2: Fax Number: City: Selection Factors: State: Patient Contact Information Contact Name:AJIT Relationship:Friend Address: Work Phone: City: Alternate Phone: [facility]/Zip Code: Email: Financial Information Financial Class:Medicare Primary Plan Desc:MEDICARE INPATIENT Primary Plan Number:[id number] Secondary Plan Desc:[place] Secondary Plan Number:[id number] Assessment Information LACE LACE Length of stay for Answers: 3 days current admission Acuity / Level of Answers: Yes Care: Did the patient have an inpatient admission? Comorbidities - select Answers: Congestive heart failure all that apply Other Notes: HTN; GERD # of Emergency department Answers: 1-2 visits in the last 6 months Social determinants Answers: History of substance abuse (ETOH, street drugs, prescription drugs, etc.) Lack of community resources and/or lack of social support (no pcp, lives alone, transportation, carmelo d) Score: 17 Date Signed: 03/07/2018 01:46 PM Electronically Signed By:LEIGHANN Hernández [facility] CM Progress Note CM Note CM Note Notes: Pts case discussed in tx rounds. Pt is a 72 y/o man admitted for CHF. Pt is getting a stress test today. Pt will most likely d/c independent once stress test comes back negative. PT has been ordered. CM available for changes. Plan: Independent Date Signed: 03/04/2018 12:37 PM Electronically Signed By:LEIGHANN Owens [facility] CM Progress Note CM Note CM Note Notes: CM Note from Wednesday03/05/18 - previously documented under notes in [employer] d/t [employer] downtime: Reviewed chart regarding discharge plan of care, pt's progress. Per MD notes, pt had an abnormal echo/stress test and is scheduled for a LHC today. Per PT notes, pt is cleared for home with no needs or follow up. Anticipate pt will likely discharge home independently when medically stable. CM will continue to follow. Discharge Plan: Home independently Date Signed: 03/06/2018 07:30 PM Electronically Signed By:Jackeline Tsai RN [facility] CM Progress Note CM Note CM Note Notes: Reviewed chart, spoke with Dr. Abbott and LURDES Swan regarding discharge plan of care, pt's progress. Per unit rounds, pt would likely benefit from a short stay in rehab secondary to weakness, fatigue and shortness of breath. Met with pt to discuss potential needs. [place] fifth wheel [place]. The pt states he does not think he can return to 9,000 [place] and "needs some time to recover." Pt denies preferences towards a particular SNF. Various options discussed. Pt interested in sending referrals to [facility], [facility], [facility] and [facility]. Pt interested in learning more about placement in a LTC facility. Discussed potential costs and options. Referrals sent via [employer]; awaiting responses. Pt states he is connected with [facility] Pt would like to call [facility] in the morning to check on Emergency Housing options as well. CM to follow up with pt on Wednesday03/07/18 to further discuss options. Discharge Plan: To be determined Date Signed: 03/06/2018 07:36 PM Electronically Signed By:Jackeline Tsai RN Case Management Discharge Plan Note Case Management Discharge Discharge Order Complete? Answers: Yes Patient to Obtain Answers: Independently Medications Transportation Arranged Answers: Other Notes: Arranged by Ana Laura Flynn, Wheelchair, No O 2 Faxed Final Orders Answers: Yes Notes: Ana Laura Flynn Agency/Facility Transfer Answers: Yes Notes: Ana Laura Flynn Report Printed & Faxed to Receiving Agency Discharge Comments Notes: CM discussed discharge plan with pt. Agreeable to be discharged to [facility]. [facility] has scheduled transportation for 0. Discussed with RN seth and RN will call report. Date Signed: 03/07/2018 03:33 PM Electronically Signed By:Christina Mock RN Intervention Information Intervention Type:*DAI-Signed Date of Service:03/04/2018 01:41 PM Patient Type:Observation Staff Member:Nicolasa Ayala Hours: Discipline: Severity: Comment: Intervention Type:*IM-Signed Date of Service:03/07/2018 02:13 PM Patient Type:Inpatient Staff Member:Cally Duran Hours: Discipline: Severity: Comment:
[2018-03-07 16:19] VITALS: BP 148/83
--- NOTE | 2018-03-07 17:29 | GDS ---
DISCHARGE DIAGNOSES: 1. Unstable angina, status post stent to the diagonal. 2. Acute systolic congestive heart failure. Ejection fraction 41%. 3. Toxic metabolic encephalopathy. 4. Post-polio syndrome. 5. Tobacco dependence. HISTORY: The patient is a 72-year-old male, who presented in congestive heart failure and shortness of breath. He was found to have coronary ischemia on cardiac catheterization. Had a stent to his di agonal. He was diuresed, and started on a regimen for his systolic congestive heart failure. His EF is only 41%. He will be discharged on appropriate cardiac regimen. He did have some encephalopathy during this hospitalization. Had some confusion and hallucinations t hat have now resolved. I suspect this was metabolic due to his hypoxemia and congestive heart failur e. He has weakened due to this acute hospital stay, and needs a correction facility prior to re turning to his previous living situation. DISCHARGE MEDICATIONS: Please see computer record for full detailed list. NEW MEDICATIONS: 1. Aspirin 81 mg p.o. daily. 2. Lipitor 40 mg p.o. daily. 3. Coreg 6.25 mg p.o. twice daily. 4. Plavix 75 mg p.o. daily. 5. Advair 250/50 one puff twice daily. 6. Losartan 25 mg p.o. daily. 7. Nicoderm CQ 21 mg transdermal daily. ADDITIONAL DISCHARGE INSTRUCTIONS: Follow up at [facility], Dr. Aguirre. Appointment scheduled or March 16 at 10:15 a.m. Greater than 30 minutes' of time is spent arranging this discharge. Patient seen and examined by me on day of discharge. /[id number]/MODL
== END 2018-03-07 17:52 | DRG 246 ==
LOC: F2W 13:10 → OBSVTOIN 03-04 15:31 → F2N 03-05 09:06 → F2W 03-05 12:55
PROVIDERS: ADMIT Family Medicine; ATTEND Family Medicine
PROC: 027034Z Dilation of Coronary Artery, One Artery with Drug-eluting Intraluminal Device, Percutaneous Approach (ICD-10-PCS; principal; 2018-03-05)
DX: I20.0 Unstable angina (principal); I50.21 Acute systolic (congestive) heart failure; G92 Toxic encephalopathy; G14 Postpolio syndrome; F17.200 Nicotine dependence, unspecified, uncomplicated; F15.90 Other stimulant use, unspecified, uncomplicated; I70.0 Atherosclerosis of aorta; Z23 Encounter for immunization
CPT/HCPCS: 80307; 84484-PO; 97116-GP; 97161-GP; 97164-GP; 97166-GO; 97530-GP; 97535-GO; A9500; C1725; C1769; C1874; C1887; G0009; G0378; G0480; G8978-GP-CH; G8978-GP-CJ; G8979-GP-CH; G8979-GP-CI; G8980-GP-CH; G8987-GO-CI; G8987-GO-CJ; G8988-GO-CI; G8989-GO-CI; J0360; J0583; J1644; J1650; J1940; J2250; J2785; J3010; Q9967

== ENCOUNTER 2018-03-11 11:03 | Emergency (ER) | payer OTHER, MEDICAID ==
[2018-03-11 11:12] VITALS: BP 162/98
--- NOTE | 2018-03-11 11:22 | EDPHY ---
H & P Stated Complaint: scabies/lice Source: Patient, RN/MD Exam Limitations: No limitations - Personal History Current Tetanus/Diphtheria Vaccine: Yes Tetanus Vaccine Date: 2012 - Medical/Surgical History Hx Asthma: No Hx Chronic Respiratory Disease: No Hx Diabetes: No Hx Cardiac Disease: Yes Hx Renal Disease: No Hx Cirrhosis: No Hx Alcoholism: Yes Hx HIV/AIDS: No Hx Splenectomy or Spleen Trauma: No Other PMH: pmh- GERD, depression, HTN, polio, ETOH, arthritis. psh- Tonsillectomy, Inguinal hernia rep - Social History Smoking Status: Former smoker Time Seen by Provider: 03/11/18 11:21 HPI/ROS: HPI: This is a 72-year-old male who presents with Chief Complaint: Scabies, lice Location: Body Quality: Rash Duration: Several days Signs and Symptoms: no fever, no nausea, no vomiting, no diarrhea, no urinary symptoms, no chest pain, no shortness of breath, no wheezing, no cough, no sore throat, no neck stiffness, no joint pain, no swollen glands, no ear pain Timing: Improving Severity: [id number] Context: [place] presents with several day history of a rash that is on his hands arms torso that is extremely itchy in nature. He has put Rid X on his hands and shaved his head. Patient took off all of his clothes and washed in hot water. He put his bedding in a plastic bag and secured tightly. Modifying Factors: See above Comment: ROS: A comprehensive 10 system review of systems is otherwise negative aside from elements mentioned in the history of present illness. MEDICAL/SURGICAL/SOCIAL HISTORY: Medical history: GERD, depression, HTN, polio, ETOH, arthritis Surgical history: Tonsillectomy, Inguinal hernia rep Social history: Former smoker. Family history noncontributory. CONSTITUTIONAL: Untidy, elderly white male, awake and alert, no obvious distress HEENT: Atraumatic and normocephalic, PERRL, EOMI. Nares patent; no rhinorrhea; no nasal mucosal edema. Tympanic membranes clear. Oropharynx clear, no exudate and moist pink mucosa. Airway patent. No lymphadenopathy. No meningismus. Cardiovascular: Normal S1/S2, regular rate, regular rhythm, without murmur rub or gallop. PULMONARY/CHEST: Symmetrical and nontender. Clear to auscultation bilaterally. Good air movement. No accessory muscle usage. ABDOMEN: Soft, nondistended, nontender, no rebound, no guarding, no peritoneal signs, no masses or organomegaly. No CVAT. EXTREMITIES: 2/2 pulses, strength 5/5, no deformities, no clubbing, no cyanosis or edema. NEUROLOGICAL: no focal neuro deficits. GCS 15. SKIN: Warm and dry, pinpoint annular lesions and is scattered linear pattern noted on hands and torso; no petechia; no vesicles. Good capillary refill. (Trev,Brenda) Constitutional: Initial Vital Signs Temperature (C) 36.9 C 03/11/18 11:10 Heart Rate 81 03/11/18 11:10 Respiratory Rate 18 03/11/18 11:10 Blood Pressure 162/98 H 03/11/18 11:10 O2 Sat (%) 98 03/11/18 11:10 O2 Delivery Mode Room Air Allergies/Adverse Reactions: Penicillins Allergy (Verified 03/11/18 11:12) Tongue Swelling Home Medications: Medication Instructions Recorded Aspirin [Aspirin 81mg (*)] 81 mg PO DAILY #30 tab.chew 03/07/18 Atorvastatin Calcium [Lipitor 40 40 mg PO DAILY #30 tab 03/07/18 mg (*)] Carvedilol [Coreg (*)] 6.25 mg PO BIDMEAL #60 tab 03/07/18 Clopidogrel Bisulfate [Plavix (*)] 75 mg PO DAILY #30 tab 03/07/18 Fluticasone/Salmeter 250/50Mcg 1 puffs IH BID #1 disk 03/07/18 [Advair 250/50 (*)] Losartan Potassium [Cozaar 25 mg 25 mg PO DAILY #30 tab 03/07/18 (*)] Nicotine [Nicoderm Cq 21 mg (*)] 21 mg TD DAILY #14 patch 03/07/18 Permethrin 5% [Elimite 5%] 1 khris TP ONCE #60 gm 03/11/18 Medical Decision Making ED Course/Re-evaluation: Vital signs reviewed and stable. No systemic signs. Rash is consistent with scabies and prescription for permethrin cream given This patient was seen under the supervision of my secondary supervising physician. I evaluated care for this patient independently. Discussed this patient with Dr. Wyatt who did not see the patient. (Brenda Karimi) The patient was evaluated and managed by the physician investment sales assistant. I have reviewed this chart and I agree with the findings and plan of care as documented , as indicated by my signature. I am the secondary supervising physician. ( Eneida Wyatt) Differential Diagnosis: Differential diagnosis includes but is not limited to dermatitis, scabies, lice , bugs, allergic reaction. (Brenda Karimi) Departure - Departure Disposition: Home, Routine, Self-Care Clinical Impression: Scabies Condition: Good Instructions: Scabies (ED) Referrals: [facility],. [Clinic] - As per Instructions Prescriptions: Permethrin 5% [Elimite 5%] 1 khris TP ONCE #60 gm
--- NOTE | 2018-03-11 17:27 | ASMTCMCOM ---
CM Note CM Note Notes: Pt presented to the ED w/complaints of lice and scabies. Pt found to have a rash consistent with scabies. Pt provided a Rxn for permethrin lotion. Pt was recently d/c'd from [facility] on 03/07/18 to [facility]. Spoke w/pt and he states he left there and returned to his 32' fifth wheel trailer home near [place]. Pt states he is planning on moving his trailer "down to 6,000 feet" today but "still haven't figured out where exactly." Spoke w/Serina in admissions at [facility] ([phone]) in [place], and she said pt was discharged the other day because he insisted on leaving and they deemed him decisional. They did not consider it an AMA discharge. Per Serina, they notified Shana "Arron" Marek, Transitional Care RN Spindle [employer]ter ([phone]) about pt d/c'ing home. Pt is open w/[facility]. Per chart review, pt used to be seen by [facility] but has more recently been seen by Dr Starks ([facility] CM available for further assistance if needed. Date Signed: 03/11/2018 05:26 PM Electronically Signed By:Merly Willis RN
== END 2018-03-11 12:39 | disposition home or self-care (01) ==
LOC: EDUNIT#
DX: B86 Scabies (principal)

== ENCOUNTER 2018-03-15 22:11 | Emergency (ER) | payer OTHER, MEDICAID ==
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
[2018-03-15 23:01] LABS: PLATELET COUNT 314 10^3/uL (150-400)
[2018-03-15] MEDS ORDERED: PROMETHAZINE 25 MG PREPACK #4 BTL TAKEHOME ONE (23:48)
[2018-03-16 00:24] VITALS: BP 154/109
--- NOTE | 2018-03-16 04:10 | CPEKG ---
Test Reason : OPEN Blood Pressure : / mmHG Vent. Rate : 087 BPM Atrial Rate : 088 BPM P-R Int : 172 ms QRS Dur : 086 ms QT Int : 383 ms P-R-T Axes : 060 041 072 degrees QTc Int : 461 ms Sinus rhythm Multiple premature complexes, vent & supraven Confirmed by Rohit Obrien ([id number]) on 03/16/2018 4:09:39 AM Referred By: Confirmed By:Rohit Obrien
== END 2018-03-16 00:50 | disposition home or self-care (01) ==
LOC: EDUNIT#
DX: R42 Dizziness and giddiness (principal); I11.0 Hypertensive heart disease with heart failure; I50.9 Heart failure, unspecified; I25.10 Atherosclerotic heart disease of native coronary artery without angina pectoris; F17.200 Nicotine dependence, unspecified, uncomplicated; Z95.2 Presence of prosthetic heart valve; Z59.0 Homelessness
CPT/HCPCS: 84484-PO